=== PATIENT | female | born 1990 | race Two or more races ===

== ENCOUNTER 2017-07-14 18:46 | Observation (INO) | payer MEDICAID, OTHER ==
[2017-07-15] MEDS ORDERED: RANI300T3 PO (10:30)
[2017-07-15] MEDS ORDERED: PREN-96 PO (10:30)
[2017-07-15] MEDS ORDERED: FERR325T PO (10:30)
== END 2017-07-14 19:50 | disposition home or self-care (01) | DRG 566 ==
LOC: LDRP 18:46
PROVIDERS: ADMIT Obstetrics & Gynecology; ATTEND Obstetrics & Gynecology
DX: O62.9 Abnormality of forces of labor, unspecified (principal); Z3A.38 38 weeks gestation of pregnancy
CPT/HCPCS: G0378